=== PATIENT | female | born 1925 | race Caucasian/White ===

== ENCOUNTER 2017-01-17 12:44 | Observation (INO) ==
--- NOTE | 2017-01-17 13:11 | Emergency Department Note ---
Disposition Clinical Impression: Syncope Qualifiers: Syncope type: unspecified Qualified Code(s): R55 - Syncope and collapse Closed head injury Qualifiers: Encounter type: initial encounter Qualified Code(s): S09.90XA - Unspecified injury of head, initial encounter Laceration of forehead Qualifiers: Encounter type: initial encounter Qualified Code(s): S01.81XA - Laceration without foreign body of other part of head, initial encounter Disposition: Admitted As Inpatient Condition: Good Time of Disposition: 14:21 Fall HPI - General Chief Complaint: ED Fall Stated Complaint: fall/syncope Time Seen by Provider: 01/17/17 13:05 Source: EMS Mode of arrival: EMS Limitations: no limitations Nursing Notes Reviewed: Yes Vital Signs Reviewed: Yes - History of Present Illness HPI Narrative: 89-year-old female transported by EMS after an apparent fall, possible syncopal episode. The patient states she was at the retirement singing. We were initially told she was sitting in a wheelchair. She apparently just fell forward. The patient does not really remember what happened. It is not clear if she had a syncopal episode or had a loss of consciousness after hitting her head. She is awake and alert now. Other than pain in her forehead she is not complaining of any other specific symptoms. No chest pain. No abdominal pain. She denies extremity pain or injury. She denies neck or back pain. 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 Fall Witnessed: yes Place Fall Occurred: retirement/SNF Loss of Consciousness: unsure Prolonged Down Time?: no Symptoms Prior to Fall: none Context: unknown Location of injury: face (Right forehead laceration) Severity: mild Quality: sharp Associated symptoms (after fall): Reports: denies - Related Data Home Medications Medication Instructions Recorded Confirmed Bumetanide [Bumex] 1 mg PO DAILY 04/16/15 01/17/17 Buspirone HCl [Buspar] 5 mg PO DAILY 04/16/15 01/17/17 Citalopram [CeleXA] 20 mg PO DAILY 04/16/15 01/17/17 Furosemide [Lasix] 40 mg PO DAILY 04/16/15 01/17/17 Ipratropium/Albuterol Neb [Duoneb] 3 ml IH Q8H PRN 04/16/15 01/17/17 Omeprazole [PriLOSEC] 20 mg PO DAILY 04/16/15 01/17/17 traZODone [TraZODone] 50 mg PO DAILY 04/16/15 01/17/17 Rivaroxaban [Xarelto] 20 mg PO DAILY 01/17/17 01/17/17 Previous Rx's Medication Instructions Recorded Mag Hydrox/Al Hydrox/Simeth 15 ml PO Q6HR #200 oral.susp 04/16/15 [Maalox] Allergies Allergy/AdvReac Type Severity Reaction Status Date / Time acetaminophen Allergy Dizziness Verified 04/16/15 21:38 tramadol [From Ultram] Allergy Dizziness Verified 04/16/15 21:38 All systems ED: reviewed and negative except as stated. Constitutional: Denies: fever Eyes: Denies: vision change ENT ED: Denies: ear pain, throat pain Cardiovascular: Denies: chest pain Respiratory: Denies: cough, dyspnea Gastrointestinal: Denies: abdominal pain, nausea, vomiting, diarrhea Genitourinary: Denies: urgency, dysuria, frequency Musculoskeletal: Reports: other (No extremity pain). Denies: back pain, neck pain Neurological: Reports: headache (Right forehead pain). Denies: weakness, numbness, paresthesias Fall PMH - Past Medical History Medical history: Reports: arthritis, atrial fibrillation, cancer, CHF, COPD, coronary artery disease, dementia, GERD, hypertension, myocardial infarction Psychiatric history: Reports: depression - Social History Smoking Status: Never smoker Alcohol use: Reports: none Drug use: Reports: none Physical Exam - General Limitations: physical limitation General appearance: alert, in no apparent distress - Head Head exam: normocephalic, other (Right forehead a hematoma with a 2 cm oblique laceration in the center of the hematoma which is well approximated and not actively bleeding.) - ENT ENT exam: normal exam, normal oropharynx, TM's normal bilaterally, other (No other facial trauma) - Neck Neck exam: Present: normal inspection, full ROM, trachea midline. Absent: tenderness, lymphadenopathy - Chest Chest inspection: Present: normal inspection, symmetric chest wall rise. Absent : tenderness - Respiratory Respiratory exam: Present: normal lung sounds bilaterally. Absent: respiratory distress, wheezes - Cardiovascular Cardiovascular exam: Present: regular rate, normal rhythm, normal heart sounds - Abdominal Exam Abdominal exam: Present: soft, Non-Tender, normal bowel sounds. Absent: organomegaly, mass - Extremities Exam Extremities exam: Present: normal inspection, full ROM, other (No peripheral edema.). Absent: tenderness - Back Exam Back exam: Present: normal inspection. Absent: tenderness - Neurological Exam Neurological exam: Present: alert, oriented X3, CN II-XII intact, reflexes normal. Absent: motor sensory deficit - Psychiatric Psychiatric exam: Present: normal affect, normal mood - Skin Skin exam: Present: warm, dry, intact Course - Reevaluation(s) Reevaluation #1: Discussed with Dr. Hernandez. Accepts patient for observation admission. Time: 14:21 Vital Signs Temperature 98.8 F 01/17/17 12:46 Pulse Rate 98 01/17/17 12:46 Respiratory Rate 18 01/17/17 12:46 Blood Pressure 128/80 01/17/17 12:46 O2 Sat by Pulse Oximetry 98 01/17/17 12:46 Temperature 98.1 F 01/17/17 18:34 Pulse Rate 68 01/17/17 18:34 Respiratory Rate 16 01/17/17 18:34 Blood Pressure 115/74 01/17/17 18:34 O2 Sat by Pulse Oximetry 94 01/17/17 18:34 Oxygen Delivery Oxygen Delivery Room Air Procedures - Laceration Laceration 1 Site: face Side (If applicable): right Size (cm): 2 Description: linear Depth: simple, single layer Pre-repair: wound explored, deep structures intact Skin layer closed with: skin glue Fall - MDM Narrative Medical decision making narrative: Differential includes but is not limited to closed head injury, for laceration, traumatic intracerebral hemorrhage, traumatic subarachnoid hemorrhage, cardiac syncope secondary to arrhythmia, anemia, hypotension, orthostatic hypotension. - Lab Data Lab results reviewed: Yes I reviewed the patient's lab results. Result diagrams: 01/17/17 13:18 01/17/17 13:18 Lab Results 01/17/17 01/17/17 01/17/17 Range/Units 13:18 13:18 13:18 WBC 5.0 (4.3-11.1) K/mcL RBC 4.31 (3.82-4.97) M/mcL Hgb 12.8 (11.5-15.4) g/dL Hct 38.8 (35.3-44.9) % MCV 90.0 (83.0-100.0) fL MCH 29.7 (28.0-33.3) pg MCHC 33.0 (31.6-35.5) g/dL RDW 12.7 (11.5-14.5) % Plt Count 246 (140-400) K/mcL MPV 9.8 (9.4-12.4) fL Immature Gran % 0.2 (0-4) % Seg Neutrophils % 78.7 % Lymphocytes % 14.1 % Monocytes % 6.0 % Eosinophils % 0.4 % Basophils % 0.6 % Neutrophils # 4.0 (1.6-8.9) K/mcL Lymphocytes # 0.7 (0.6-4.6) K/mcL Monocytes # 0.3 (0.0-1.3) K/mcL Eosinophils # 0.0 (0.0-0.6) K/mcL Basophils # 0.0 (0.0-0.2) K/mcL PT (9.4-12.1) Seconds INR Sodium 139 (136-145) mEq/L Potassium 3.5 (3.5-4.5) mEq/L Chloride 97 L (98-109) mEq/L Carbon Dioxide 31 H (19-29) mEq/L BUN 14 (7-20) mg/dL Creatinine 0.86 (0.57-1.11) mg/dL Est GFR ( Amer) > 60 (> 60) Est GFR (Non-Af Amer) > 60 (> 60) BUN/Creatinine Ratio 16 (6-26) Glucose 93 (70-99) mg/dL Calculated Osmolality 288 (280-300) Calcium 9.4 (8.6-10.8) mg/dL Total Bilirubin 0.5 (0.2-1.2) mg/dL AST 20 (5-34) Units/L ALT 12 (0-55) Units/L Alkaline Phosphatase 100 (38-126) Units/L Troponin I 0.00 (0-0.03) ng/mL B-Natriuretic Peptide (0-100) pg/mL Serum Total Protein 6.8 (6.0-8.3) g/dL Albumin 3.3 L (3.5-5.0) g/dL Globulin 3.5 (2.4-3.5) g/dL Albumin/Globulin Ratio 0.9 L (1.1-2.2) 01/17/17 01/17/17 Range/Units 13:18 13:18 WBC (4.3-11.1) K/mcL RBC (3.82-4.97) M/mcL Hgb (11.5-15.4) g/dL Hct (35.3-44.9) % MCV (83.0-100.0) fL MCH (28.0-33.3) pg MCHC (31.6-35.5) g/dL RDW (11.5-14.5) % Plt Count (140-400) K/mcL MPV (9.4-12.4) fL Immature Gran % (0-4) % Seg Neutrophils % % Lymphocytes % % Monocytes % % Eosinophils % % Basophils % % Neutrophils # (1.6-8.9) K/mcL Lymphocytes # (0.6-4.6) K/mcL Monocytes # (0.0-1.3) K/mcL Eosinophils # (0.0-0.6) K/mcL Basophils # (0.0-0.2) K/mcL PT 20.6 H (9.4-12.1) Seconds INR 1.9 Sodium (136-145) mEq/L Potassium (3.5-4.5) mEq/L Chloride (98-109) mEq/L Carbon Dioxide (19-29) mEq/L BUN (7-20) mg/dL Creatinine (0.57-1.11) mg/dL Est GFR ( Amer) (> 60) Est GFR (Non-Af Amer) (> 60) BUN/Creatinine Ratio (6-26) Glucose (70-99) mg/dL Calculated Osmolality (280-300) Calcium (8.6-10.8) mg/dL Total Bilirubin (0.2-1.2) mg/dL AST (5-34) Units/L ALT (0-55) Units/L Alkaline Phosphatase (38-126) Units/L Troponin I (0-0.03) ng/mL B-Natriuretic Peptide 19 (0-100) pg/mL Serum Total Protein (6.0-8.3) g/dL Albumin (3.5-5.0) g/dL Globulin (2.4-3.5) g/dL Albumin/Globulin Ratio (1.1-2.2) - Radiology Data Radiology results reviewed: Yes I reviewed the patient's radiology results. Impressions Chest X-Ray 01/17/17 13:06 IMPRESSION: No evidence of acute cardiopulmonary disease. D/ / Chad Leon MD / Chad Leon MD Interpreting Provider: Chad Leon MD Head CT 01/17/17 13:06 IMPRESSION: No acute intracranial abnormality. Small right frontal scalp hematoma/ laceration. Chronic white matter microangiopathic ischemic changes and age-related cerebral atrophy. D/ / oNah Friedman MD / Noah Friedman MD Interpreting Provider: Noah Friedman MD - EKG Data EKG attestation: Yes I reviewed and interpreted this EKG. EKG results narrative: Sinus rhythm, rate of 64, left axis deviation, first-degree AV block, nonspecific ST-T changes. Rhythm strip shows a sinus rhythm with a rate of 64, SC interval 202 ms, QRS 70 ms with no other ectopy as interpreted by me. No old EKG available for comparison.
[2017-01-17 13:29] LABS: Basophils % 0.6 %; Eosinophils % 0.4 %; Hematocrit 38.8 % (35.3-44.9); Hemoglobin 12.8 g/dL (11.5-15.4); Immature Granulocytes % 0.2 % (0-4); Lymphocytes # 0.7 K/mcL (0.6-4.6); Lymphocytes % 14.1 %; Mean Corpuscular Hemoglobin 29.7 pg (28.0-33.3); Mean Platelet Volume 9.8 fL (9.4-12.4); Monocytes # 0.3 K/mcL (0.0-1.3); Platelet Count 246 K/mcL (140-400); Red Blood Count 4.31 M/mcL (3.82-4.97); Red Cell Distribution Width 12.7 % (11.5-14.5); Segmented Neutrophils % 78.7 %
[2017-01-17 13:34] LABS: INR 1.9; Prothrombin Time 20.6 Seconds (9.4-12.1)
[2017-01-17 13:51] LABS: Alanine Aminotransferase 12 Units/L (0-55); Albumin 3.3 g/dL (3.5-5.0); Albumin/Globulin Ratio 0.9 (1.1-2.2); Alkaline Phosphatase 100 Units/L (38-126); Aspartate Amino Transferase 20 Units/L (5-34); BUN/Creatinine Ratio 16 (6-26); Bilirubin,Total 0.5 mg/dL (0.2-1.2); Blood Urea Nitrogen 14 mg/dL (7-20); Calcium 9.4 mg/dL (8.6-10.8); Carbon Dioxide 31 mEq/L (19-29); Chloride 97 mEq/L (98-109); Globulin 3.5 g/dL (2.4-3.5); Glucose 93 mg/dL (70-99); Osmolality,Calculated 288 (280-300); Potassium 3.5 mEq/L (3.5-4.5); Sodium 139 mEq/L (136-145); Total Protein 6.8 g/dL (6.0-8.3); eGFR For African Americans > 60 (> 60); eGFR For Non-African Americans > 60 (> 60)
[2017-01-17] MEDS ORDERED: Ipratropium/Albuterol Neb 3 ML IH PRN (15:18)
[2017-01-17] MEDS ORDERED: Naloxone 0.4 MG/ML INJ IVP PRN (15:18)
--- NOTE | 2017-01-17 15:37 | Electrocardiograph Report ---
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
--- NOTE | 2017-01-17 16:55 | Internal Med History&Physical ---
Date of Encounter: 01/17/17 Time of Encounter: 16:30 Assessment and Plan (1) Closed head injury Current visit: Yes Status: Acute She will be monitored for mental status changes. Etiology seems to be mechanical rather than syncope from history supplied by family. Qualifiers: Encounter type: initial encounter Qualified Code(s): S09.90XA - Unspecified injury of head, initial encounter (2) Dementia Current visit: Yes Status: Chronic We will check B12 and TSH in a.m. 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 Winslow is a 89 year old female who was brought to emergency room after she sustained a fall at the retirement. The family reports they were told she was being wheeled in a wheelchair when her feet touched the floor causing her to fall forward out of the chair onto the floor. She apparently made little if any attempt to brace herself in falling. She landed onto the right supraorbital area. There was no evident loss of consciousness. She was evaluated in emergency room and admitted to [facility] floor for ongoing care needs. The patient has dementia and could not give any reliable history. Past Med Surg Social Fam HX - Past Medical History Medical history: arthritis, atrial fibrillation, cancer, CHF, COPD, coronary artery disease, dementia, GERD, hypertension, myocardial infarction Psychiatric history: depression - Past Surgical History Surgical History: no surgical history - Social History Smoking Status: Never smoker Smokeless Tobacco Status: No Alcohol use: none Drug use: none Internal Medicine - H&P: Meds Bumetanide [Bumex] 1 mg PO DAILY 04/16/15 [History] Buspirone HCl [Buspar] 5 mg PO DAILY 04/16/15 [History] Citalopram [CeleXA] 20 mg PO DAILY 04/16/15 [History] Furosemide [Lasix] 40 mg PO DAILY 04/16/15 [History] Ipratropium/Albuterol Neb [Duoneb] 3 ml IH Q8H PRN 04/16/15 [History] Mag Hydrox/Al Hydrox/Simeth [Maalox] 15 ml PO Q6HR #200 oral.susp 04/16/15 [Rx] Omeprazole [PriLOSEC] 20 mg PO DAILY 04/16/15 [History] traZODone [TraZODone] 50 mg PO DAILY 04/16/15 [History] Rivaroxaban [Xarelto] 20 mg PO DAILY 01/17/17 [History] 3 Allergy/AdvReac Type Severity Reaction Status Date / Time acetaminophen Allergy Dizziness Verified 04/16/15 21:38 tramadol [From Ultram] Allergy Dizziness Verified 04/16/15 21:38 All Systems PM: A 10-system review of systems was performed and is negative for pertinent findings except as documented above in the HPI. Review of systems: Unobtainable from the patient. The family in the room could not give significant history. They state she is a lifelong nonsmoker and has no chronic lung disease. They states she has had edema in her legs at times and is being given diuretics. The did not know the reason for the OAC Xarelto. They deny past strokes seizures or diabetes. - Constitutional Vitals: Temp Pulse Resp BP Pulse Ox 98.5 F 67 18 104/67 96 01/17/17 15:38 01/17/17 15:38 01/17/17 15:38 01/17/17 15:38 01/17/17 15:38 Exam: Gen.: She is a well-developed well-nourished female lying in bed who appears in no acute distress. HEENT: Head shows ecchymosis with contusion and superficial abrasion in the right periorbital area. Eyes: There is no scleral icterus mouth: Mucosa is dry Neck: There is no thyromegaly or adenopathy noted Heart: Regular without murmurs gallops or ectopics Lungs: No wheezes or crackles are heard Abdomen: Soft and nontender. No masses or guarding are noted. Extremities: She is wearing stockings which I did not remove. There is no pitting edema. She has significant DJD changes of her hands. Neurologic: Mental status: She speaks a few words but could not give appropriate answers to questions. She follows some commands. Cranial nerves: Smile is symmetric. Forehead wrinkles bilaterally. Tongue protrudes midline. EOMI. Motor: There is no pronator drift. Cerebellar: Finger to nose is intact bilaterally. Skin: Warm and dry Internal Med - H&P Results - Labs CBC & Chem 7: 01/17/17 13:18 01/17/17 13:18 - VTE Reasons for not Prescribing Prophylaxis: Not indicated-Anticoagulated or INR therapeutic
[2017-01-17] MEDS: Mag Hydrox/Al Hydrox/Simeth 30 ML UDC PO SCH (17:23)
[2017-01-17] MEDS: traZODone 50 MG TABLET PO SCH ×2 (20:48→21:01)
[2017-01-18] MEDS: Mag Hydrox/Al Hydrox/Simeth 30 ML UDC PO SCH ×2 (00:15→06:00)
[2017-01-18 06:16] VITALS: BP 104/69
[2017-01-18] MEDS ORDERED: Ibuprofen 600 MG TABLET PO PRN (06:54)
[2017-01-18 08:04] LABS: Basophils % 0.6 %; Eosinophils % 0.6 %; Hematocrit 34.3 % (35.3-44.9); Hemoglobin 11.4 g/dL (11.5-15.4); Immature Granulocytes % 0.2 % (0-4); Lymphocytes % 12.6 %; Mean Corpuscular HGB Conc 33.2 g/dL (31.6-35.5); Mean Corpuscular Hemoglobin 29.4 pg (28.0-33.3); Mean Corpuscular Volume 88.4 fL (83.0-100.0); Monocytes % 7.8 %; Platelet Count 210 K/mcL (140-400); Red Blood Count 3.88 M/mcL (3.82-4.97); Red Cell Distribution Width 12.9 % (11.5-14.5); Segmented Neutrophils % 78.2 %
[2017-01-18 08:05] LABS: Lymphocytes # 0.6 K/mcL (0.6-4.6); Monocytes # 0.4 K/mcL (0.0-1.3); Neutrophils # 3.8 K/mcL (1.6-8.9)
[2017-01-18] MEDS ORDERED: traZODone 50 MG TABLET PO SCH (09:00)
[2017-01-18] MEDS ORDERED: *HR* Rivaroxaban 10 MG TABLET PO SCH (09:00)
[2017-01-18] MEDS ORDERED: Bumetanide 1 MG TABLET PO SCH (09:00)
[2017-01-18] MEDS ORDERED: Furosemide 40 MG TABLET PO SCH (09:00)
[2017-01-18 09:36] LABS: BUN/Creatinine Ratio 16 (6-26); Blood Urea Nitrogen 12 mg/dL (7-20); Carbon Dioxide 30 mEq/L (19-29); Chloride 99 mEq/L (98-109); Glucose 91 mg/dL (70-99); Osmolality,Calculated 285 (280-300); Potassium 3.3 mEq/L (3.5-4.5); Sodium 138 mEq/L (136-145); eGFR For African Americans > 60 (> 60); eGFR For Non-African Americans > 60 (> 60)
[2017-01-18 09:52] LABS: Thyroid Stimulating Hormone 1.911 mcIU/mL (0.350-4.840)
--- NOTE | 2017-01-18 09:55 | Discharge Summary ---
Date of Encounter: 01/18/17 Time of Encounter: 09:45 - Discharge Diagnosis (1) Closed head injury Priority: Primary Status: Acute Qualifiers: Encounter type: initial encounter Qualified Code(s): S09.90XA - Unspecified injury of head, initial encounter (2) Dementia Priority: Secondary Status: Chronic Qualifiers: Dementia type: unspecified type Dementia behavioral disturbance: without behavioral disturbance Qualified Code(s): F03.90 - Unspecified dementia without behavioral disturbance - Discharge Medications Prescriptions: Potassium Chloride 10 meq PO DAILY 365 Days tab.er.prt Home Medications: Buspirone HCl [Buspar] 5 mg PO DAILY 04/16/15 [History] Citalopram [CeleXA] 20 mg PO DAILY 04/16/15 [History] Mag Hydrox/Al Hydrox/Simeth [Maalox] 15 ml PO Q6HR #200 oral.susp 04/16/15 [Rx] traZODone [TraZODone] 50 mg PO DAILY 04/16/15 [History] Rivaroxaban [Xarelto] 20 mg PO DAILY 01/17/17 [History] Bumetanide [Bumex] 0.5 mg PO DAILY #0 01/18/17 [Rx] Ipratropium/Albuterol Neb [Duoneb] 3 ml IH Q6H PRN #0 01/18/17 [Rx] Omeprazole [PriLOSEC] 20 mg PO DAILY PRN #0 01/18/17 [Rx] Potassium Chloride 10 meq PO DAILY 365 Days tab.er.prt 01/18/17 [Rx] Allergies/Adverse Reactions: 3 Allergy/AdvReac Type Severity Reaction Status Date / Time acetaminophen Allergy Dizziness Verified 04/16/15 21:38 tramadol [From Ultram] Allergy Dizziness Verified 04/16/15 21:38 Date of admission: 01/17/17 14:48 Primary care physician: Kobe Proctor MD - Patient Status Disposition: Transfer SNF Condition: Good Functional capacity at discharge: bed bound Overall status at discharge: patient is progressing back to baseline - Discharge Instructions Follow Up With: Kobe Proctor MD [Primary Care Provider] - 1 week - Diet and Activity Activity: resume usual activities as tolerated Diet: advance to your usual diet Hospital course: Ms. Winslow is a 89 year old female who was brought to emergency room after she sustained a fall at the intermediate. The family reports they were told she was being wheeled in a wheelchair when her feet touched the floor causing her to fall forward out of the chair onto the floor. She apparently made little if any attempt to brace herself in falling. She landed onto the right supraorbital area. There was no evident loss of consciousness. She was evaluated in emergency room and admitted to [facility] for ongoing care needs. Initial orders written by the emergency room physician. I saw her on January 17 and performed a history and physical. She had no mental status changes during the course of hospitalization. The periorbital edema had improved by the morning of January 18. I felt she was stable for discharge back to [facility] where she will follow with Dr. Proctor. Lasix was discontinued since she was also on Bumex. The Bumex dose will be decreased to 0.5 mg daily since she has no edema and appeared to have dry oral mucosa and borderline hypotension during hospital stay. Supplemental potassium will be given and follow-up labs will be done at the intermediate in one week. TSH and B12 levels are pending at time of discharge. - Time Spent with Patient Total time spent providing and/or coordinating discharge services: - Constitutional Vitals: Temp Pulse Resp BP Pulse Ox 97.4 F L 67 18 104/69 93 01/18/17 06:14 01/18/17 06:14 01/18/17 06:14 01/18/17 06:14 01/18/17 06:14 - VTE Reasons for not Prescribing Prophylaxis: Not indicated-Anticoagulated or INR therapeutic
--- NOTE | 2017-01-18 10:02 | Physician Discharge Referral ---
ExtendedCare Referral Info Transfer To: [facility] Provider in Charge: David Provider in Charge after Transfer: PCP (Kobe Proctor M.D.) - Diagnosis (1) Closed head injury Priority: Primary Status: Acute (2) Dementia Priority: Secondary Status: Chronic Prognosis: Fair Aware of Diagnosis: Family Aware of Prognosis: Family - Transfer Medications Prescriptions: Potassium Chloride 10 meq PO DAILY 365 Days tab.er.prt Home Medications: Buspirone HCl [Buspar] 5 mg PO DAILY 04/16/15 [History] Citalopram [CeleXA] 20 mg PO DAILY 04/16/15 [History] Mag Hydrox/Al Hydrox/Simeth [Maalox] 15 ml PO Q6HR #200 oral.susp 04/16/15 [Rx] traZODone [TraZODone] 50 mg PO DAILY 04/16/15 [History] Rivaroxaban [Xarelto] 20 mg PO DAILY 01/17/17 [History] Bumetanide [Bumex] 0.5 mg PO DAILY #0 01/18/17 [Rx] Ipratropium/Albuterol Neb [Duoneb] 3 ml IH Q6H PRN #0 01/18/17 [Rx] Omeprazole [PriLOSEC] 20 mg PO DAILY PRN #0 01/18/17 [Rx] Potassium Chloride 10 meq PO DAILY 365 Days tab.er.prt 01/18/17 [Rx] Allergies/Adverse Reactions: 3 Allergy/AdvReac Type Severity Reaction Status Date / Time acetaminophen Allergy Dizziness Verified 04/16/15 21:38 tramadol [From Ultram] Allergy Dizziness Verified 04/16/15 21:38 - Respiratory Orders Smoking Cessation: Smoking cessation has been advised. For more information, call the [place] Tobacco Quit Line at 4-880-NWYY-NOW. - Lab Orders Lab Orders: Other (include drug levels w/frequency) (CBC with differential, BMP in 1 week) - Rehabiliation Orders Rehab Potential: Fair - Diet Orders Regular CERTIFICATION: I certify that the transfer of the above named patient to an Extended Care Facility is necessary for the continuing treatment of the diagnosis listed. The above information is true and accurate reflection of patient's current condition. Confidential - Redisclosure prohibited without a patient's written consent.
[2017-01-19] MEDS ORDERED: *HR* Rivaroxaban 15 MG TABLET PO SCH (09:00)
== END 2017-01-18 10:54 ==
LOC: EMEROOPIK 12:44 → INPPIK 12:44
PROVIDERS: ADMIT Emergency Medicine; ATTEND Internal Medicine